=== PATIENT | male | born 1990 ===

== ENCOUNTER 2017-06-27 15:18 | Emergency (ER) | payer SELFPAY ==
[~2017-06-27] VITALS: Ht 188 cm; Wt 77.1 kg
[2017-06-27] MEDS ORDERED: IV NORMAL SALINE 1000 ML BAG IV ONE (15:45)
[2017-06-27] MEDS ORDERED: ONDANSETRON 4 MG/2 ML VIAL IV ONE (15:45)
[2017-06-27] MEDS ORDERED: HYDROMORPHONE 1 MG/1 ML DISP.SYRIN IV ONE ×3 (15:45→17:15)
[2017-06-27] MEDS ORDERED: KETOROLAC TROMETHAMINE 30 MG INJ IVP ONE (15:45)
[2017-06-27 15:58] LABS: *BILIRUBIN,URIN NEGATIVE (NEGATIVE); *BLOOD, URINE 3+ (NEGATIVE); *CLARITY,URINE SLIGHTLY CLOUDY (CLEAR); *COLOR,URINE YELLOW (YELLOW); *KETONES,URINE NEGATIVE (NEGATIVE); *PROTEIN,URINE NEGATIVE (NEGATIVE); *UROBILINOGEN,URINE 0.2 E.U./dl (NORMAL); LEUKOCYTE ESTERASE ,URINE NEGATIVE (NEGATIVE); NITRITE, URINE NEGATIVE (NEGATIVE); UGLUCOSE NEGATIVE (NEGATIVE)
[2017-06-27] MEDS ORDERED: KETOROLAC TROMETHAMINE 30 MG INJ ONE (16:02)
[2017-06-27] MEDS ORDERED: HYDROMORPHONE 2 MG/1 ML DISP.SYRIN ONE ×2 (16:03→17:29)
[2017-06-27] MEDS ORDERED: ONDANSETRON 4 MG/2 ML VIAL ONE (16:03)
[2017-06-27] MEDS ORDERED: EPINEPHRINE 1:1000 30 MG/30 ML VIAL SQ ONE (16:15)
[2017-06-27] MEDS ORDERED: diphenhydrAMINE 50 MG/1 ML VIAL IV ONE (16:15)
[2017-06-27 16:16] LABS: BACTERIA,URINE NONE SEEN /HPF (NONE SEEN); BASOPHILS # (AUTO) 0.1 K/uL (0.0-8.0); BASOPHILS % (AUTO) 1.6 % (0.0-2.0); EOSINOPHILS % (AUTO) 0.1 % (0.0-7.0); HEMATOCRIT 25.9 % (40-50); HEMOGLOBIN 7.7 G/DL (14.0-18.0); LYMPHOCYTES # (AUTO) 0.8 K/UL (0.8-4.8); LYMPHOCYTES % (AUTO) 11.9 % (20.5-51.5); MEAN CORPUSCULAR HEMOGLOBIN 20.2 UUG (27.0-31.0); MEAN CORPUSCULAR HGB CONC 30 g/dL (32.0-37.0); MEAN CORPUSCULAR VOLUME 67.8 FL (82.0-92.0); MONOCYTES # (AUTO) 0.7 K/UL (0.1-1.30); MONOCYTES % (AUTO) 10.4 % (0.0-11.0); NEUTROPHILS # (AUTO) 5.4 K/UL (1.8-8.9); PLATELET COUNT (AUTO) 358 K/UL (150-450); RBC,URINE 80-100 /HPF (0-3); RED BLOOD CELL COUNT(AUTO) 3.82 MIL/UL (4.7-6.1); SQUAMOUS EPITHELIAL CELL,UR FEW /HPF (NONE SEEN); WBC,URINE 0-3 /HPF (0-3)
[2017-06-27 16:17] LABS: CREATININE 0.9 mg/dL (0.6-1.3); POTASSIUM 4.2 mmol/L (3.5-5.1)
[2017-06-27] MEDS ORDERED: diphenhydrAMINE 50 MG/1 ML VIAL ONE (16:24)
--- NOTE | 2017-06-27 16:28 | NUR ---
ALL MEDS ADMINISTERTED, 1L 0.9NS INFUSING. PT BECAME ANXTIOUS AND HAD PRURITIS AFTER DILUADID SO BENADRYL 50MG IV/ SQ ADRENALIN ADMINISTERED.
[2017-06-27] MEDS ORDERED: EPINEPHRINE 1 MG/1 ML AMP ONE (16:30)
[2017-06-27 16:39] LABS: LYMPHOCYTES % (MANUAL) 14 % (20-40); MONOCYTES % (MANUAL) 10 % (2-10); NEUTROPHILS % (MANUAL) 76 % (42-75)
[2017-06-27] MEDS ORDERED: methylPREDNISolone SOD SUCC 125 MG/2 ML VIAL IV ONE (16:45)
[2017-06-27] MEDS ORDERED: methylPREDNISolone SOD SUCC 125 MG/2 ML VIAL ONE (17:50)
--- NOTE | 2017-06-27 18:25 | NUR ---
MSE COMPLETED. PT REFUSED THE SOLUMEDROL IV. STAED HIS ALLERGIC REACTION HAD RESOLVED. P HAD IV;'S D/C'D INTACT, ACI/COPY OF TEST GIVEN. PT AMBULATED W/O DIFF/TOOK ALL BELONGINGS. STARTED HE HAD CALLED FOR A RIDE.
[2017-06-27 18:33] VITALS: BP 118/81
== END 2017-06-27 18:25 | disposition home or self-care (01) ==
LOC: ER 15:25
DX: N23 Unspecified renal colic (principal); Z87.442 Personal history of urinary calculi
CPT/HCPCS: 36415; 85025; A4663; J0171; J1170; J1200; J1885; J2405; J2930; J7030